=== PATIENT | female | born 1945 | race Caucasian/White ===

== ENCOUNTER 2021-07-04 10:55 | Inpatient (IN) | payer MEDICARE, OTHER ==
[2021-07-04] MEDS ORDERED: Sodium Chloride 0.9% 10 ML Syringe FLUSH PRN (11:00)
[2021-07-04] MEDS ORDERED: Lactated Ringers 1,000 ML IV ONE (11:02)
[2021-07-04] MEDS ORDERED: Sodium Chloride 0.9% 1,000 ML IV SCH ×2 (11:15→14:45)
[2021-07-04 12:03] LABS: PTT,PARTIAL THROMBOPLSTIN TIME 24.9 SEC (25.6-32.8)
[2021-07-04 12:14] LABS: ANION GAP 17.3 mmol/L (5-15)
[2021-07-04] MEDS ORDERED: Ondansetron 4 MG/2 ML SDV IVPUSH ONE (12:21)
[2021-07-04] MEDS ORDERED: Iopamidol 755 Mg/ML 100 ML Bottle IVPUSH ONE (13:00)
[2021-07-04] MEDS ORDERED: REMDESIVIR 200 MG in Sodium Chloride 0.9% 250 ML IV ONE (15:00)
[2021-07-04] MEDS ORDERED: cefTRIAXone 2 GM Vial IVPUSH SCH (16:00)
[2021-07-04] MEDS ORDERED: Ondansetron 4 MG/2 ML SDV IVPUSH PRN (17:33)
[2021-07-04] MEDS ORDERED: Acetaminophen 500 MG Tab PO PRN (17:36)
[2021-07-04] MEDS: dexAMETHasone 2 MG, dexAMETHasone 4 MG PO SCH ×2 (18:20)
[2021-07-05 07:07] LABS: CHLORIDE,CL 107 mmol/L (98-107); SODIUM,NA 140 mmol/L (136-145)
[2021-07-05 07:09] LABS: ANION GAP 17.1 mmol/L (5-15)
[2021-07-05] MEDS: dexAMETHasone 2 MG, dexAMETHasone 4 MG PO SCH ×2 (08:54)
[2021-07-05] MEDS: Lisinopril 20 MG Tab PO SCH (14:36)
[2021-07-05] MEDS ORDERED: REMDESIVIR 100 MG in Sodium Chloride 0.9% 100 ML IV SCH (15:00)
[2021-07-05] MEDS: cefTRIAXone 2 GM Vial IVPUSH SCH (16:15)
[2021-07-05] MEDS ORDERED: DICLOFENAC SODIUM 50 MG PO PRN (16:44)
[2021-07-05] MEDS ORDERED: Melatonin 3 MG Tab PO SCH (20:00)
[2021-07-05] MEDS ORDERED: DICLOFENAC SODIUM 50 MG PO SCH (20:00)
[2021-07-06 07:50] LABS: CHLORIDE,CL 105 mmol/L (98-107); SODIUM,NA 137 mmol/L (136-145)
[2021-07-06 07:52] LABS: ANION GAP 14.6 mmol/L (5-15)
[2021-07-06] MEDS ORDERED: Multivitamins with Iron/Calcium/Folic Acid/Minerals Tab PO SCH (08:00)
[2021-07-06] MEDS ORDERED: RED YEAST RICE 600 MG PO SCH (08:00)
[2021-07-06] MEDS ORDERED: Ascorbic Acid 500 MG Tab PO SCH (08:00)
[2021-07-06] MEDS ORDERED: Non-Formulary Medication 1 Each (Zinc Sulfate [Zinc] 50 MG Tablet) PO SCH (08:00)
[2021-07-06] MEDS ORDERED: Aspirin 81 MG Tab.EC PO SCH (08:00)
[2021-07-06] MEDS ORDERED: Cholecalciferol (Vitamin D3) 25 MCG Tab PO SCH (08:00)
[2021-07-06] MEDS: Lisinopril 20 MG Tab PO SCH (09:45)
[2021-07-06] MEDS: cefTRIAXone 2 GM Vial IVPUSH SCH (13:22)
== END 2021-07-06 14:09 | disposition home or self-care (01) | DRG 871 ==
LOC: VM.ED 10:55 → VM.MS 13:58
PROVIDERS: ADMIT Physician Assistant; ATTEND Physician Assistant
PROC: 3E0DX3Z Introduction of Anti-inflammatory into Mouth and Pharynx, External Approach (ICD-10-PCS; principal; 2021-07-04)
PROC: XW033E5 Introduction of Remdesivir Anti-infective into Peripheral Vein, Percutaneous Approach, New Technology Group 5 (ICD-10-PCS; 2021-07-04)
DX: A41.9 Sepsis, unspecified organism (principal); A41.51 Sepsis due to Escherichia coli [E. coli]; U07.1 COVID-19; J12.82 Pneumonia due to coronavirus disease 2019; N39.0 Urinary tract infection, site not specified; N30.00 Acute cystitis without hematuria; E87.2 Acidosis; E78.00 Pure hypercholesterolemia, unspecified; M19.90 Unspecified osteoarthritis, unspecified site; G47.30 Sleep apnea, unspecified; I10 Essential (primary) hypertension; E66.9 Obesity, unspecified; Z88.0 Allergy status to penicillin; Z79.82 Long term (current) use of aspirin; Z79.899 Other long term (current) drug therapy; Z87.2 Personal history of diseases of the skin and subcutaneous tissue
CPT/HCPCS: 36415; 71275; 80053; 81001; 82728; 83605; 83615; 83735; 83880; 84100; 84145; 84443; 84484; 85025; 85379; 85610; 85730; 86140; 87040 ×2; 87086; 87088 ×2; 87186 ×2; J2405; J7030; Q9967; 82248; 96374; 99285-25; A9270-GY; J0696; J7050; J8540